=== PATIENT | female | born 1965 | race Caucasian/White ===

== ENCOUNTER 2022-01-27 06:31 | Day surgery (SDC) | payer BC ==
[2022-01-27] MEDS ORDERED: Ringers Lactate 1,000 ML IV ONE (06:43)
[2022-01-27] MEDS ORDERED: CEFAZOLIN SODIUM 1 GM/VIAL ONE (06:43)
[2022-01-27] MEDS ORDERED: BUPIVACAINE 0.25% PF 30 ML VIAL ONE (07:30)
[2022-01-27] MEDS ORDERED: BUPIVACA 0.5%/EPI 0.0005%/PF 30 ML VIAL ONE (07:30)
[2022-01-27] MEDS ORDERED: MIDAZOLAM HCL 2 MG/2 ML INJ ONE (08:02)
[2022-01-27] MEDS ORDERED: ACETAMINOPHEN 500 MG TAB ONE (08:03)
[2022-01-27] MEDS ORDERED: CELECOXIB 100 MG CAPSULE ONE (08:03)
[2022-01-27] MEDS ORDERED: FENTANYL CITR 100 MCG/2 ML ONE (08:06)
[2022-01-27] MEDS ORDERED: propofoL 200 MG/20 ML VIAL IV ONE (08:07)
[2022-01-27] MEDS ORDERED: LIDOCAINE 2% MPF 5 ML VIAL ONE (08:08)
[2022-01-27] MEDS ORDERED: ONDANSETRON 4 MG/2 ML VIAL ONE (08:25)
[2022-01-27] MEDS ORDERED: dexAMETHasone 10 MG/ML VIAL ONE (08:45)
--- NOTE | 2022-01-27 09:08 | P.OP ---
Preoperative diagnosis: Multiple Scalp Cysts / Skin Lesions Postoperative diagnosis: Multiple Scalp Cysts / Skin Lesions Primary procedure: Excision of Multiple Scalp Cysts / Skin Lesions Anesthesia: GETA + Local Estimated blood loss: <5 cc Specimen: 4 sebaceous cysts, 2 skin lesions Findings: Multiple Scalp Cysts / Skin Lesions ~ 0.25cm to 1.5cm Complications: None Transferred to: Recovery Room Condition: Good
--- NOTE | 2022-01-27 10:25 | OP ---
Date of Procedure: 01/27/2022 Surgeon: Kade Bear MD, Preoperative Diagnosis: Multiple scalp cysts/skin lesions. Postoperative Diagnosis: Multiple scalp cysts/skin lesions. Procedure Performed: Wide local excision of 4 scalp cysts and wide local excision of 2 skin lesions of the scalp. Anesthesia: General endotracheal plus 0.5% Marcaine with epinephrine. Estimated Blood Loss: Less than 5 cc. Specimen: Four sebaceous cysts, two skin lesions. Findings: Multiple scalp cysts and skin lesions ranging from 0.25 to 1.5 cm. The scalp cysts 3 were approximately 1.5 to 1.3 cm in size. One was approximately 1 cm in size and 2 skin lesions were tata roximately 0.25 cm in size. The scalp cysts were located anteriorly mid top of the head, slight left of midline, right posterior, left lateral posterior. Two skin lesions were central posterior and ri ght posterior. Complications: None. Disposition: The patient was transferred to the recovery room in good condition. Procedure In Detail: After informed consent was obtained, the patient was brought to the operating r oom, prepped and draped in the usual sterile fashion after adequate anesthesia achieved. I injected all the skin lesions with 0.5% Marcaine with epinephrine. A linear incision was made with a 15-blade down through the subcutaneous tissues. The cysts were removed with capsule intact for 4 scalp skin lesions as described above. Two skin lesions were taken down using a 15-blade with a circumferential cut down into the subdermal plane and sent off for pathologic examination. All skin incisions were copiously irrigated. Hemostasis was achieved with bipolar cautery. After this was performed, all sk in incisions were then closed using a 2-0 Prolene suture in an interrupted fashion with good approxim ation of tissues and good hemostasis at the end of the procedure. The patient tolerated the procedur e well without evidence of complication and transferred to PACU in good condition. All counts were c orrect at the end of the case. TK/MODL Voice ID: [id number] Report ID: [id number]
[2022-01-27 12:47] VITALS: BP 165/75; TEMP 97.8; O2SAT 99
== END 2022-01-27 10:50 | disposition home or self-care (01) ==
LOC: OR 06:31
PROVIDERS: ATTEND Surgery
PROC: 0JB00ZZ Excision of Scalp Subcutaneous Tissue and Fascia, Open Approach (ICD-10-PCS; principal; 2022-01-27 08:00)
DX: L72.11 Pilar cyst (principal); D23.4 Other benign neoplasm of skin of scalp and neck
CPT/HCPCS: 11422 ×3; 11421; 11420 ×2; 88304; 88305; J2704; J2250; J3010; J1100; J7120; J2405; J0690